=== PATIENT | female | born 1975 | race Caucasian/White ===

== ENCOUNTER 2017-10-19 10:18 | Emergency (ER) | payer OTHER ==
[2017-10-19 11:34] LABS: URINE PH (Dip) POC 5.5 (5.0-8.5)
[2017-10-19 11:34] LABS: URINE BLOOD (Dip) POC Negative (NEGATIVE); URINE GLUCOSE (Dip) POC Negative (NEGATIVE); URINE KETONES (Dip) POC Negative (NEGATIVE); URINE LEUKOCYTE EST (Dip) POC Trace (NEGATIVE); URINE NITRITE (Dip) POC Negative (NEGATIVE); URINE TOTAL PROTEIN POC Negative (NEGATIVE)
[2017-10-19] MEDS: KETOROLAC 30 MG INJ IM (11:44)
== END 2017-10-19 13:22 | disposition home or self-care (01) ==
LOC: FTE 10:18
DX: S33.5XXA Sprain of ligaments of lumbar spine, initial encounter (principal); V49.40XA Driver injured in collision with unspecified motor vehicles in traffic accident, initial encounter
CPT/HCPCS: 72100; 81003; 81025; 96372; 99284-25